=== PATIENT | male | born 1985 | race Caucasian/White ===

== ENCOUNTER 2018-08-21 14:46 | Emergency (ER) | payer MEDICAID ==
--- NOTE | 2018-08-21 14:58 | EDPHY ---
H & P Time Seen by Provider: 08/21/18 14:48 HPI/ROS: CHIEF COMPLAINT: Altered mental status HISTORY OF PRESENT ILLNESS: According to EMS patient's friends called because he was altered. He does have a history of seizure disorder and intermittently takes Depakote but not recently. Patient did not bite his tongue or wet his pants. He has no medical complaints here. He was brought in as he was confused but he was refusing vital signs for EMS. On arrival the patient is gazing at the culver and making lip smacking movements and only intermittently responding appropriately to questions. He denies pain or trauma but further history and review of systems is unable on arrival because of the patient's inability to cooperate with the interview. Denies suicidal or homicidal ideation, denies hallucinations or hearing voices. PAST MEDICAL HISTORY: Seizure disorder Social history: Denies alcohol or drugs General Appearance: Patient is alert and looking around the room but is only intermittently cooperative. Eyes: No scleral icterus. Pupils equal reactive extraocular motion intact. ENT, Mouth: Normal mucous membranes. No tongue abrasion. Respiratory: Normal respiratory effort, breath sounds equal, lungs are clear to auscultation. Cardiovascular: Regular rate and rhythm. Gastrointestinal: Abdomen is soft and non tender. Neurological: Response intermittently to commands, moves all 4 extremities, face symmetric. His speech is rambling but he does use full sentences. Skin: Patient has some cracked skin on the knuckles of his left hand otherwise no redness abrasions lacerations or other abnormalities. Musculoskeletal: No spinal or extremity deformity or tenderness. Psychiatric: Patient is looking around the room and appears to be responding to internal stimuli. Emergency Department course/MDM: Screening labs and serial observation. 2049: discussed with Dr. Huntley requesting depakote restarted. He was placed on a mental health hold by psychiatric account assistant. Patient states he was prescribed Depakote 500 mg p.o. Three times daily when he was taking it. Restarted in ED. Signed to Geoff with inpatient placement pending. (Javier Mitchell) Constitutional: Initial Vital Signs Temperature (C) 36.5 C 08/21/18 14:57 Heart Rate 97 08/21/18 14:57 Respiratory Rate 18 08/21/18 14:57 Blood Pressure 147/90 H 08/21/18 14:57 O2 Sat (%) 96 08/21/18 14:57 O2 Delivery Mode Room Air Allergies/Adverse Reactions: metoclopramide [From Reglan] Allergy (Verified 08/21/18 14:56) risperidone [From Risperdal] Allergy (Verified 08/21/18 14:56) Home Medications: Medication Instructions Recorded Depakote 08/21/18 Medical Decision Making Other Provider: [address] Mitchell pending placement. (Geovanny Tellez) I assumed care of this patient from Dr. Tellez at 7:00 a.m.. He underwent a mental health evaluation on the morning of 08/22/2018. I have spoken with the account assistant. I have also spoken with the patient. He denies suicidality or homicidality. He does not appear to be gravely disabled. He states that he used methamphetamine at some point in the recent past, cannot remember exactly when. He states that he is sleepy this morning. He is homeless. He does not criteria for an M1 hold and I have lifted the hold. He is given information about resources/care home for the homeless. He is comfortable leaving the emergency department and, in fact, desires to do so. (Farzaneh Jean) - Data Points Laboratory Results: Laboratory Results 08/21/18 15:15 08/21/18 15:15 Medications Given: Divalproex Sodium (Depakote) 500 mg PO Q8 JASON Stop: 02/17/19 21:59 Last Admin: 08/22/18 06:23 Dose: 500 mg Discontinued Medications Olanzapine (Zyprexa Zydis) 10 mg PO EDNOW ONE Stop: 08/22/18 01:29 Last Admin: 08/22/18 01:36 Dose: 10 mg Departure - Departure Clinical Impression: Psychosis Qualifiers: Psychosis type: unspecified psychosis type Qualified Code(s): F29 - Unspecified psychosis not due to a substance or known physiological condition Condition: Fair Instructions: Methamphetamine (By mouth) Additional Instructions: Please utilize the information about shelters for the homeless. I am referring you to [facility] for medical care if you should need it. Referrals: [facility],. [Clinic] - As per Instructions
[2018-08-21 15:26] LABS: PLATELET COUNT 362 10^3/uL (150-400)
--- NOTE | 2018-08-21 21:06 | ASMTTLCEVL ---
[facility] Evaluation - Basic Information Evaluation Start Date and 08/21/2018 07:30 PM Time Hospital Status Answers: M1 Hold 72-hr M1 Hold Start Date 08/21/2018 07:45 PM and Time Patient statement Notes: "I don't know what's going on". Narrative Notes: Pt is a 33 y/o male. He carries no ID on him, but has stated what his name and birthdate are. It is unclear where he lives. Per ED physician's report, pt's friends called EMS "because he was altered". It is believed that he has a seizure disorder and intermittenly takes Depakote, but not recently. Upon exam it was found that he had not bitten his tongue or wet his pants. Clinician met with the pt; he was placed on an M1, following this evaluation, due to him presenting as gravely disabled. Per M1, "Pt mumbling and mostly non-sensical. He is saying repeatedly that he "doesn't know what's going on". He became agitated easily. Grooming and hygeine were quite poor". Pt was asleep when the clinician entered the room and woke with some effort. He had a difficult time staying awake. He remained lying down and occasionally sat part way up. His hygeine and grooming were poor. Pt was able to state, when he was asked to identify his location, "in a room". He was able to state his name and his middle initial in addition to his birthdate. He reported that he had seizures. He responded to most of the questions asked, but his responses were often soft, mumbled and not able to be understood. He did very clearly state several times, " I don't know what's going on". He became agitated when questions were asked a second time, and after approximately 10 minutes pt became agitated, "stop asking me so many questions, leave the room, let me rest". He was propped up in bed and his voice became loud and angry in tone. Once the clinician left the room the pt covered his head with the blanket. Per physician's report, pt denied SI or HI. He denied hallucinations. The physician stated that the pt was looking around the room and appeared to be responding to internal stimuli. He has taken Risperdal in the past ( this is known due to records indicated he is allergic to it). Due to not being able to understand much of what the pt was saying it was not possible to evaluate his thought processes or content. [facility] were contacted; they stated that he was not a client of theirs. There is no collateral available. Diagnosis History Notes: Pt was asked if he had ever been given a psychiatric diagnosis; his response was not comprehendable. Prior suicide attempts Notes: Pt denied this. Prior hospitalizations Notes: Pt was asked if he had been hospitalized in the past; his response was not comprehendable. Treatment Responses Notes: It is unknown if he has had treatment in the past. History of violence Notes: This is unknown. Medications (name, dosage, route, freq uency) Notes: Pt has a hx of being prescribed Depakote for seizures. His Valproic Acid lab was under 10.0 L Allergies/Reaction Notes: Reglan Risperidol Sleep Notes: Pt is asleep now and difficult to wake up. Overall sleeping pattern is unknown. Appetite Notes: Pt ate some of his dinner. Overally appetite is unknown. Medical/Surgical history Notes: Seizures. Substance use history (frequency, intensity, his tory, duration) Notes: Pt denies. Labs positive for marijuana. Family composition Notes: This is unknown. Due to agitation this question could not be asked. Need for family Answers: No participation in patient's care Family psychiatric/substance abuse history Notes: This is unknown. Due to agitation this question could not be asked. Developmental history Notes: This is unknown. Due to agitation this question could not be asked. Marital status/children Notes: This is unknown. Due to agitation this question could not be asked. Living situation Notes: This is unknown. Due to agitation this question could not be asked. Sexual history/orientation Notes: This is unknown. Due to agitation this question could not be asked. Peer support/family strengths Notes: This is unknown. Due to agitation this question could not be asked. Education level/history Notes: This is unknown. Due to agitation this question could not be asked. Work history Notes: This is unknown. Due to agitation this question could not be asked. Notes: This is unknown. Due to agitation this question could not be asked. Legal Notes: This is unknown. Due to agitation this question could not be asked. Methodist/Spiritual Notes: This is unknown. Due to agitation this question could not be asked. Leisure Notes: This is unknown. Due to agitation this question could not be asked. Collateral Notes: None available. Patient's strengths Answers: Artistic/Creative/Musical (Please select at least TWO strengths): Willingness [facility] Evaluation - Mental Status Exam Appearance: Answers: Unclean Unkempt Eye Contact: Answers: Intermittent Mood: Answers: Irritable Affect: Answers: Agitated Confused Flat Irritable Labile Behavior: Answers: Cooperative Uncooperative Erratic Sleeping Speech: Answers: Relevant Unclear Incoherent Mumbling Soft Verbally Abusive Insight: Answers: Poor Judgement: Answers: Poor Depression Answers: Flat Affect Signs/Symptoms: Pt reported to have Answers: No suicidal/self-injuring ideation/behavior? Pt reported to be making Answers: No suicidal/self-injuring threats? Pt reported to have Answers: No aggression/assault ideation/behavior? Pt reported to be making Answers: No aggression/assault threats? Pt exhibits inability to Answers: Yes care for self/grave disability? Ideation/behavior is Answers: No chronic? Patient has a specific Answers: No plan? Pt has access to means to Answers: No execute the plan? Ideation involves Answers: No serious/lethal intent? Ideation has Answers: No delusional/hallucinatory content? History of Answers: No suicidal/self-injuring ideation, behavior, or threats? History of Answers: No aggressive/assaultive ideation, behavior, or threats? History of serious Answers: No physical harm to self/others while in treatment setting? [facility] Evaluation - Suicide/Homicide Risk Suicide Risk Factors: Answers: Agitation Flat Affect Current Suicidal Answers: No Ideation? Current Suicidal Ideation Answers: No in the Past 48 Hours? Current Suicidal Answers: No Ideation, Worst Ever? Suicide Internal Answers: Other Notes: Unknown Protective Factors: Suicide External Answers: Other Notes: Unknown Protective Factors: Ranking of patient's Answers: Low suicidal risk: Ranking of patient's Answers: Low homicidal risk: [facility] Evaluation - Wrap-up BDI Total Score: Not completed BSS Total Score: Not completed AXIS I Diagnosis (include DSM-V and ICD-10 codes), must also be entered in [employer], which is the source of truth. 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
--- NOTE | 2018-08-21 21:09 | ASMTLCPROG ---
Notes Note: Notes: Clinician contacted on-call psychiatrist, Dr Huntley, reccomending placement on behavioral unit. Dr Huntley concerned pt may have had seizure, spoke to his ED physician, requesting that he be given Depakote and reevaluated later this evening or tomorrow morning after he's had Depakote and has rested. ED physician agreed to do this. Date Signed: 08/21/2018 09:08 PM Electronically Signed By:Mervat Mckeon
[2018-08-21] MEDS: DIVALPROEX NA 500 MG TAB PO SCH (21:59)
[2018-08-22] MEDS ORDERED: OLANZapine DISINTEGR 10 MG TAB ONE (01:27)
[2018-08-22] MEDS ORDERED: OLANZapine DISINTEGR 10 MG TAB PO ONE (01:28)
[2018-08-22] MEDS: DIVALPROEX NA 500 MG TAB PO SCH (06:23)
--- NOTE | 2018-08-22 09:02 | ASMTLCPROG ---
Notes Note: Notes: Pt was seen this am for re-evaluation. TLC had completed MH evaluation last night due to pt.'s altered mental status of unknown origin. He was placed on a M1 hold due to grave disability. Per evaluation this am pt presents as cooperative and orientated to person, place and time. Pt reported he has a hx of bipolar disorder but has not been in any mental health treatment for an extended period of time. Pt reports questioning his diagnosis and denies any interest or intent in seeking mental health treatment. Pt reported he traveled from [place] to [place] about 5-6 months ago and is homeless. Pt requesting a desire to be discharged from ED and declined any desire for inpt mental health treatment. Pt also declined outpt mental health services but was provided with local resources for homeless resources and mental health crisis treatment. Pt admits to recent use of Meth and marijuana but was unable to report last use date. Pt denies any thoughts of harm to self or others. TLC consulted with ED Physician Farzaneh Jean. Agreed pt does not currently meet criteria to remain in 72 hour hold so hold will be lifted by Physician Date Signed: 08/22/2018 09:01 AM Electronically Signed By:Senait Ash
[2018-08-22 09:03] VITALS: BP 121/76
== END 2018-08-22 09:23 | disposition home or self-care (01) ==
PROC: GZ11ZZZ Psychological Tests, Personality and Behavioral (ICD-10-PCS; principal; 2018-08-21)
DX: F29 Unspecified psychosis not due to a substance or known physiological condition (principal); Z59.0 Homelessness
CPT/HCPCS: 80305; G0480